=== PATIENT | female | born 1970 | race Caucasian/White ===

== ENCOUNTER → 2021-02-20 14:04 | Outpatient (CLI) | payer OTHER, SELFPAY ==
--- NOTE | ~2021-02-20 | CT_ITS ---
EXAMINATION: CT abdomen pelvis w con INDICATION: Left flank pain TECHNIQUE: Computed tomographic images of the abdomen and pelvis were obtained after the administrati on of 100 cc of Omnipaque 350 intravenous contrast. The dose-length product (DLP) was 1115.05 mGy-cm. Automated exposure control and iterative reconstruction technique were employed. COMPARISON: None available FINDINGS: The lung bases are clear. The heart size is normal. The gallbladder is surgically absent. T he liver, spleen, pancreas, and adrenal glands are normal. The right kidney is unremarkable. There is a 3.4 cm cyst of the left kidney. No stones are identified in the kidneys, ureters, or bladder. Ther e is no hydronephrosis or hydroureter. No pathologically enlarged abdominal or pelvic lymph nodes are identified. There is no free intraperitoneal gas or evidence of bowel obstruction. The appendix is n ormal. There is an approximately 3.7 cm area of low attenuation in the cervix. There is a fat-contain ing umbilical hernia. There is mild osteoarthritis of the hips. IMPRESSION: 1. No CT correlate for the patient's symptoms. 2. 3.7 cm area of low attenuation in the cervix which could reflect nabothian cyst however follow-up with pelvic ultrasound is recommended. Reviewed, dictated and finalized at location A. IMPRESSION: 1. No CT correlate for the patient's symptoms. 2. 3.7 cm area of low attenuation in the cervix which could reflect nabothian c yst however follow-up with pelvic ultrasound is recommended.
[2021-02-20 14:26] LABS: Estimated Glomerular Filt Rate 47
== END ==
PROVIDERS: PCP Internal Medicine Endocrinology, Diabetes & Metabolism; Visit Provider Nurse Practitioner Family
DX: R10.9 Unspecified abdominal pain (principal)
CPT/HCPCS: 74177; Q9967